=== PATIENT | female | born 1975 | race Caucasian/White ===

== ENCOUNTER → 2021-08-01 09:30 | Outpatient (BNVA) | payer OTHER, SELFPAY | PROVIDERS: Family Provider Family Medicine; PCP Family Medicine; Visit Provider Nurse Practitioner Family | DX: Z20.822 Contact with and (suspected) exposure to COVID-19 (principal) | CPT/HCPCS: 87635 ==

== ENCOUNTER → 2021-10-31 11:00 | Outpatient (BNVA) | payer OTHER, SELFPAY | PROVIDERS: Family Provider Family Medicine; PCP Family Medicine; Visit Provider Nurse Practitioner Family | DX: Z20.822 Contact with and (suspected) exposure to COVID-19 (principal); Z72.0 Tobacco use | CPT/HCPCS: 87635 ==

== ENCOUNTER 2023-10-07 17:23 | Emergency (ER) | payer OTHER, MEDICAID, SELFPAY ==
[2023-10-07 17:54] VITALS: BP 138/87; PULSE 98; RESP 12; TEMP 36.7; O2SAT 100; BMI 30.9
--- NOTE | 2023-10-07 19:53 | CTR_ITS ---
PROCEDURE INFORMATION: Exam: CT Abdomen And Pelvis With Contrast Exam date and time: 10/07/2023 8:32 PM Age: 48 years old Clinical indication: Abdominal pain; Localized; Right; Prior surgery; Surgery date: 6+ months; Surgery type: Gallbladder, csection, RT cyst removal on ovaryx2; Additional info: Rlq abd pain TECHNIQUE: Imaging protocol: Computed tomography of the abdomen and pelvis with contrast. Sagittal and coronal reformatted images were created and reviewed. Radiation optimization: All CT scans at this facility use at least one of these dose optimization techniques: automated exposure control; mA and/or kV adjustment per patient size (includes targeted exams where dose is matched to clinical indication); or iterative reconstruction. Contrast material: OMNI 350; Contrast volume: 100 ml; Contrast route: INTRAVENOUS (IV); COMPARISON: No relevant prior studies available. RADIATION DOSE METRICS: Total DLP (mGy-cm): 644.67 FINDINGS: Lungs: Visualized lungs are clear. Pleural spaces: No pleural effusion. Heart: Visualized portions of the heart are unremarkable. Liver: The liver is unremarkable. Gallbladder and bile ducts: Patient has had a previous cholecystectomy. Dilatation of the biliary ducts, not unexpected in a patient who has had a prior cholecystectomy. Pancreas: The pancreas is unremarkable. No pancreatic ductal dilatation. Spleen: The spleen is unremarkable. Adrenal glands: The right and left adrenal glands are unremarkable. Kidneys and ureters: The right and left kidneys are unremarkable. The right and left ureters are unremarkable. Stomach and bowel: No obstruction. No mucosal thickening. Appendix: The appendix is visualized and is unremarkable. No findings to suggest acute appendicitis. Intraperitoneal space: No free intraperitoneal air. No ascites. No loculated fluid collections to suggest an abscess. Vasculature: Mild atherosclerotic changes in the visualized arteries. No evidence for aortic aneurysm or aortic dissection. Hepatic veins, portal veins, splenic vein, and SMV are patent. Lymph nodes: No lymphadenopathy. Urinary bladder: The bladder is unremarkable for the degree of distension. Reproductive: Large nabothian cyst in the cervix. 4.4 x 4.2 cm leiomyoma in the anterior myometrium. The right ovary is unremarkable. The patient has had a previous bilateral tubal ligation. Dominant follicle in the left ovary measuring 2.1 x 1.6 cm (series 3, image 67). Bones/joints: Degenerative changes in the spine and hips. Soft tissues: No acute abnormality in the extra-abdominal soft tissues. CT/CT abdomen pelvis w con* [id number] IMPRESSION: 1. Dominant follicle in the left ovary measuring 2.1 x 1.6 cm. 2. Incidental/nonacute findings are listed in the report.
--- NOTE | 2023-10-07 19:54 | W.ED.ABDPA2 ---
HPI - Abdominal Pain General: Chief Complaint: Abdominal Pain Stated Complaint: right abd pain Time Seen by Provider: 10/07/23 19:40 History of Present Illness: 48-year-old female presents emergency department complaints of right lower quadrant abdominal pain that has been intermittent for the previous 5 days. She states over the last 4 to 5 hours it has become more prevalent and feels like it is more constant. She states that is a dull pulling type pain. She states she had a similar pain when she had inflammation of her gallbladder in the past. She denies known injury or trauma. She denies nausea vomiting fevers chills or night sweats. Review of Systems General: Reports: 10 or more systems reviewed and unremarkable except in HPI and below GI: Reports: abdominal pain PFSH ED PFSH: Social History Smoking and tobacco/nicotine status: current every day tobacco/nicotine user cigarettes Physical Exam Narrative: EXAM NARRATIVE: Constitutional: the patient appears well nourished and with normal development. Vital signs reviewed as documented. HENMT: Normocephalic, atraumatic. Extermal ears with normal appearance without drainage. Nose without drainage, normal appearance. Mucus membranes moist. Neck is supple, No jugular venous distension, trachea is midline, no appreciable carotid bruits. No lymphadenopathy. No meningeal signs. Flexion, extension and lateral rotation is without pain. Eyes: Pupils are equal, round, reactive to light and accommodation. No scleral icterus. Extra-ocular movement are intact. Thorax is symmetrical and with equal rise and fall with respirations. Resp: Lungs are clear to auscultation. No wheezes, rales, crackles or ronchi at present. Cardio: Regular rate and rhythm. Positive S1, S2. No appreciable murmurs, rubs or gallops. GI: Abdominal exam reveals normal bowel sounds to all quadrants. No organomegaly. No obvious palpable masses noted. No hepatomegally appreciated. Soft, slightly tender to palpation to the right lower quadrant and right upper quadrant. Into the suprapubic region. Extremity: Extremities are non-edematous and both femoral and pedal pulses are 2+ and equal bilaterally. Moves all extremities well, sensation in all extremities. Neuro: Alert and oriented x4, person, place, time and situation. Cranial nerves II through XII are grossly intact, there is no focal neurological deficits that I can appreciate at present. Motor strength in the upper and lower extremities are equal and bilateral 5/5. Psych: Cooperative, calm, normal thought process, appropriate judgment. Skin: No lesions, rashes. No gross abnormalities noted. Back: Symmetrical, no obvious deformity, No CVA tenderness Course Vital Signs: Vital signs: Vital Signs Temperature 98.1 F 10/07/23 17:54 Pulse Rate 84 10/07/23 22:15 Respiratory Rate 16 10/07/23 22:15 Blood Pressure 139/98 10/07/23 22:15 Pulse Oximetry 98 10/07/23 22:15 Oxygen Delivery Me thod Room Air 10/07/23 21:00 MDM - Abdominal Pain Medical Decision Making Physical exam completed and documented, I will obtain laboratory evaluation to include a CBC, CMP, lipase, urinalysis, and a CT scan of the patient's abdomen pelvis to evaluate for possible differential diagnosis of bowel obstruction, incarcerated hernia, abdominal wall strain, abdominal wall hematoma, constipation. I will provide the patient IV access and IV fluid as well as a CT scan abdomen pelvis with contrast for evaluation for possible colitis, acute appendicitis, diverticulitis, fibroma,. Medical Records I reviewed the patient's medical records. Lab Data I reviewed the patient's lab results. 10/07/23 20:05 10/07/23 20:05 Labs/Radiology: Radiology Impressions Abdomen/Pelvis CT 10/07/23 19:53 IMPRESSION: 1. Dominant follicle in the left ovary measuring 2.1 x 1.6 cm. 2. Incidental/nonacute findings are listed in the report. Laboratory Results WBC 10.43 10^3/uL (3.29-11.43) 10/07/23 20:05 RBC 4.77 10^6/uL (3.85-5.65) 10/07/23 20:05 Hgb 13.90 g/dL (11.27-16.99) 10/07/23 20:05 Hct 41.3 % (36-47) 10/07/23 20:05 MCV 86.6 fl (85-98) 10/07/23 20:05 MCH 29.1 pg (27-33) 10/07/23 20:05 MCHC 33.7 g/dL (30-55) 10/07/23 20:05 RDW 15.0 % (12.1-15.1) 10/07/23 20:05 Plt Count 438 10^3/cmm (157-399) H 10/07/23 20:05 MPV 9.5 fL (7.4-10.4) 10/07/23 20:05 Neut % (Auto) 59.8 % 10/07/23 20:05 Lymph % (Auto) 31.7 % 10/07/23 20:05 Edmonson % (Auto) 5.1 % 10/07/23 20:05 Eos % (Auto) 2.5 % 10/07/23 20:05 Baso % (Auto) 0.6 % 10/07/23 20:05 Neut # (Auto) 6.24 10^3/uL (1.8-7.7) 10/07/23 20:05 Lymph # (Auto) 3.3 10^3/uL (0.8-4.8) 10/07/23 20:05 Edmonson # (Auto) 0.5 10^3/uL (0.2-0.9) 10/07/23 20:05 Eos # (Auto) 0.3 10^3/uL (0.0-0.8) 10/07/23 20:05 Baso # (Auto) 0.1 10^3/uL (0.0-0.1) 10/07/23 20:05 Nucleated RBC % (auto) 0 % 10/07/23 20:05 Nucleated RBCs # 0.0 /100WBC 10/07/23 20:05 Sodium 141 mmol/L (136-145) 10/07/23 20:05 Potassium 4.1 mmol/L (3.5-5.1) 10/07/23 20:05 Chloride 104 mmol/L (98-107) 10/07/23 20:05 Carbon Dioxide 25 mmol/L (22-29) 10/07/23 20:05 Anion Gap 16.1 (5-19) 10/07/23 20:05 BUN 10 mg/dL (6-20) 10/07/23 20:05 Creatinine 0.7 mg/dL (0.5-0.9) 10/07/23 20:05 GFR Calculation 88.9 mL/min (90-130) L 10/07/23 20:05 Glucose 108 mg/dL (65-115) 10/07/23 20:05 Calculated Osmolality 292 mOsm/kg (285-295) 10/07/23 20:05 Calcium 9.5 mg/dL (8.5-10.5) 10/07/23 20:05 Total Bilirubin 0.2 mg/dL (0.15-1.2) 10/07/23 20:05 AST 15 U/L (0-32) 10/07/23 20:05 ALT 18 U/L (0-33) 10/07/23 20:05 Alkaline Phosphatase 91 U/L (35-105) 10/07/23 20:05 Total Protein 8.0 g/dL (6.6-8.7) 10/07/23 20:05 Albumin 4.3 g/dL (3.5-5.2) 10/07/23 20:05 Globulin 3.7 g/dL (1.3-4.6) 10/07/23 20:05 Lipase 40 U/L (13-60) 10/07/23 20:05 Urine Color Yellow (Yellow) 10/07/23 19:55 Urine Appearance Clear (CLEAR) 10/07/23 19:55 Urine pH 7 (5-7) 10/07/23 19:55 Ur Specific Nora 1.005 (1.005-1.030) 10/07/23 19:55 Urine Protein Neg (Negative) 10/07/23 19:55 Urine Glucose (UA) Norm (Normal) 10/07/23 19:55 Urine Ketones Negative (Negative) 10/07/23 19:55 Urine Blood Neg (Negative) 10/07/23 19:55 Urine Nitrate Negative (Negative) 10/07/23 19:55 Urine Bilirubin Neg (Negative) 10/07/23 19:55 Urine Urobilinogen Norm mg/dL (Negative) 10/07/23 19:55 Ur Leukocyte Esterase Negative (Negative) 10/07/23 19:55 All radiology interpretation(s) finalized by discharge Discharge Plan Discharge Patient Disposition: Home Clinical Impression: Nabothian cyst Abdominal pain Qualifiers: Abdominal location: lower abdomen, unspecified Qualified Code(s): R10.30 - Lower abdominal pain, unspecified Condition: Stable Prescriptions: No Action cholecalciferol (vitamin D3) 25 mcg (1,000 unit) capsule 25 mcg PO DAILY zinc 50 mg tablet 50 mg PO DAILY ascorbate calcium (vitamin C) 500 mg tablet 500 mg PO DAILY amoxicillin-pot clavulanate 875-125 mg tablet 1 tab PO BID 7 Days Qty: 14 0RF erythromycin 5 mg/gram (0.5 %) ointment 0.5 inch ophthalmic (eye) QID 7 Days Qty: 3.5 0RF Discharge Orders: Discharge ED (Routine); Ordered 10/07/23 Ordered By: Rob Goddard Referrals: Saturnino Russell MD [Physician] - Discharge Diet: Advance as tolerated Discharge Activity: Resume usual activity Patient Instructions: Abdominal Pain (ED), Opioid Safety, Pain Management Activity Restrictions/Additional Instructions: Activity Restrictions/Additional Instructions: Thank you for choosing [facility] for your healthcare needs today. Please realize that you were seen in the Emergency Department and that we are providing you with an emergency medical screening exam and this may not be a complete and all inclusive of all the testing and or medical work-up that you may need to determine your ailment or severity of your illness. It is very important that you follow-up as instructed with your Primary care provider or Specialist for additional evaluation and to discuss your medical treatment plan. You may return to the Emergency Department should you have concerns or if your condition changes or worsens in any way. Coding Level of Care Code ED Fire Control Technician G for Jaxon Fuchs
[2023-10-07 20:00] VITALS: BP 165/93; PULSE 90; RESP 16; O2SAT 98
[2023-10-07 20:15] LABS: Add Urine Microscopic? NO; Charge for UA Resulting for Rev
[2023-10-07 20:19] LABS: Bilirubin Urine Neg (Negative); Blood Urine Neg (Negative); Glucose Urine UA Norm (Normal); Ketones Urine Negative (Negative); Leukocyte Esterase Urine Negative (Negative); Nitrate Urine Negative (Negative); Protein Urine Neg (Negative); Specific Gravity, Urine 1.005 (1.005-1.030); Urine Appearance Clear (CLEAR); Urine Color Yellow (Yellow); Urobilinogen Urine Norm (Negative); pH Urine 7 (5-7)
[2023-10-07 20:27] LABS: Basophils # 0.1 10^3/uL (0.0-0.1); Basophils % 0.6 %; Eosinophils # 0.3 10^3/uL (0.0-0.8); Eosinophils % 2.5 %; Hematocrit 41.3 % (36-47); Lymphocytes # 3.3 10^3/uL (0.8-4.8); Lymphocytes % 31.7 %; Mean Corpuscular HGB Conc 33.7 g/dL (30-55); Mean Corpuscular Hemoglobin 29.1 pg (27-33); Mean Corpuscular Volume 86.6 fl (85-98); Mean Platelet Volume 9.5 fL (7.4-10.4); Monocytes # 0.5 10^3/uL (0.2-0.9); Monocytes % 5.1 %; Neutrophils # 6.24 10^3/uL (1.8-7.7); Neutrophils % 59.8 %; Nucleated Red Blood Cells % 0 %; Platelet Count 438 10^3/cmm (157-399); Red Blood Count 4.77 10^6/uL (3.85-5.65); White Blood Count 10.43 10^3/uL (3.29-11.43)
[2023-10-07 20:34] LABS: Alanine Aminotransferase 18 U/L (0-33); Albumin Level 4.3 g/dL (3.5-5.2); Alkaline Phosphatase 91 U/L (35-105); Anion Gap 16.1 (5-19); Aspartate Amino Transferase 15 U/L (0-32); Blood Urea Nitrogen 10 mg/dL (6-20); Calcium 9.5 mg/dL (8.5-10.5); Carbon Dioxide 25 mmol/L (22-29); Chloride 104 mmol/L (98-107); Globulin 3.7 g/dL (1.3-4.6); Glomerular Filtration Rate 88.9 mL/min (90-130); Glucose 108 mg/dL (65-115); Lipase 40 U/L (13-60); Osmolality Calculated 292 mOsm/kg (285-295); Potassium 4.1 mmol/L (3.5-5.1); Sodium 141 mmol/L (136-145); Total Bilirubin 0.2 mg/dL (0.15-1.2)
[2023-10-07] MEDS: iohexol 350 mg/mL 500 mL Btl (per mL) IV (20:36)
[2023-10-07 21:00] VITALS: BP 132/84; PULSE 88; RESP 16; O2SAT 99
[2023-10-07] MEDS: ketorolac 30 mg/mL INJ IVP (21:57)
[2023-10-07 22:15] VITALS: BP 139/98; PULSE 84; RESP 16; O2SAT 98
== END 2023-10-07 22:16 | disposition home or self-care (01) ==
PROVIDERS: Emergency Provider Internal Medicine
DX: R10.31 Right lower quadrant pain (principal); N88.8 Other specified noninflammatory disorders of cervix uteri; Z72.0 Tobacco use
CPT/HCPCS: 74177; 80053; 81003; 83690; 85025; 96374; 99285; J1885; Q9967

== ENCOUNTER → 2023-10-21 09:25 | Outpatient (BNVA) | payer OTHER, MEDICAID, SELFPAY | PROVIDERS: Visit Provider Obstetrics & Gynecology | DX: Z01.419 Encounter for gynecological examination (general) (routine) without abnormal findings (principal) | CPT/HCPCS: 87624 ==

== ENCOUNTER → 2023-10-30 10:48 | Outpatient (BNVA) | payer OTHER, MEDICAID, SELFPAY | PROVIDERS: Visit Provider Obstetrics & Gynecology | DX: N92.6 Irregular menstruation, unspecified (principal); D25.9 Leiomyoma of uterus, unspecified; N83.202 Unspecified ovarian cyst, left side | CPT/HCPCS: 76830 ==

== ENCOUNTER 2023-12-04 07:17 | Day surgery (SDC) | payer OTHER, MEDICAID, SELFPAY ==
[2023-12-04] VITALS (10 sets, daily range): BP systolic 121–140; BP diastolic 71–91; PULSE 71–84; RESP 12–20; TEMP 36.1; O2SAT 96–100; BMI 31.4
--- NOTE | 2023-12-04 01:35 | P.HP_ITS ---
Same Day Surgery H&P Indication for Procedure/HPI DATE OF PROCEDURE: December 04, 2023 CHIEF COMPLAINT/INDICATIONFOR SURGICAL PROCEDURE: abnormal uterine bleeding PREOP DIAGNOSIS: abnormal uterine bleeding PLANNED PROCEDURE: Operation Date: 12/04/23 08:50 Proposed Procedures p Hysteroscopy, endometrial sampling, possible endometrial polypectomy 64973 r1 0.2(Not Applicable) - Saturnino Russell MD s possible endometrial polypectomy 48629(Not Applicable) - Saturnino Russell MD 48 y.o. L2 h/o BTL h/o irregular bleeding now scheduled for hysteroscopy, endometrial sampling, possible endometrial polypectomy Medications/Allergies* Home Medications Medication Instructions Recorded Confirmed Type No Known Home Medications 10/21/23 11/03/23 History Allergies/Adverse Reactions Allergy/AdvReac Type Severity Reaction Status Date / Time acetaminophen [From Vicodin] Allergy Severe itching, Verified 12/03/23 08:29 hallucinations hydrocodone [From Vicodin] Allergy Severe itching, Verified 12/03/23 08:29 hallucinations Pertinent History/Comorbid Conditions* Family History (Updated 10/21/23 @ 08:17 by Isa Marie LPN) Ovarian cancer Grandmother Sister Diabetes Grandfather Heart disease Grandfather Breast cancer Grandmother Uterine cancer Grandmother Thyroid disease Grandmother Denies family history of Colon cancer Prostate cancer Hypercholesteremia Hypertension Stroke Social History Smoking and tobacco/nicotine status: current every day tobacco/nicotine user cigarettes Pertinent Exam Findings alert, oriented x 3, clear to auscultation bilaterally and regular rate & rhythm Recommendations Surgery/Procedure today Coding Level of Care Code Acute Code for Chg Fwd Time Spent (min) 15
--- NOTE | 2023-12-04 07:46 | W.PM.OPSUD ---
Surgery/Procedure H&P Update DATE OF PROCEDURE: December 04, 2023 DATE H&P PERFORMED: 12/04/23 H&P UPDATE INFORMATION: I have reviewed H&P completed within last 30 days, I have examined patient prior to procedure and No changes to prior documentation PREOP DIAGNOSIS: abnormal uterine bleeding PLANNED PROCEDURE: Operation Date: 12/04/23 08:50 Proposed Procedures p Hysteroscopy, endometrial sampling, possible endometrial polypectomy 82609 r10.2(Not Applicable) - Saturnino Russell MD s possible endometrial polypectomy 13798(Not Applicable) - Saturnino Russell MD
[2023-12-04] MEDS: scopolamine 1.5 Patch 1 PATCH TRANSDERMA (07:50)
[2023-12-04] MEDS: sodium chloride 0.9% 1,000 ML 30 ML IV (08:02)
--- NOTE | 2023-12-04 08:05 | ANES.PREANE2 ---
Pre-Anesthetic Assessment Height/Weight: Height 1.61 m Weight 81.647 kg Temp Pulse Resp BP Pulse Ox O2 Del Method 97.0 F L 84 18 130/86 98 Room Air 12/04/23 07:31 12/04/23 07:31 12/04/23 07:31 12/04/23 07:31 12/04/23 07:31 12/04/23 07:33 Preop Diagnosis: abnormal uterine bleeding Operation Date: 12/04/23 08:50 Proposed Procedures p Hysteroscopy, endometrial sampling, possible endometrial polypectomy 19213 r10.2(Not Applicable) - Saturnino Russell MD s possible endometrial polypectomy 60603(Not Applicable) - Saturnino Russell MD Was Beta Maru taken within 24 hours: N/A Was Clonidine taken within 24 hours: N/A Last intake: Intake Last Liquid Date 12/03/23 Last Liquid Time 23:30 Last Solid Date 12/03/23 Last Solid Time 19:00 Social Tobacco 1/3 pack(s) per day Exam alert and oriented x 3 Airway Submandibular: within normal limits Cervical ROM: within normal limits Mallampati: Class II Comments: Comments: Bad tooth @ Upper right molar History/ROS No significant history except as noted and No significant complaints Anesthetic Plan ASA status: 2 Anesthesia: General Risk of > 500 ml blood loss (7ml/kg in children): No Medications/Allergies Home Medications Medication Instructions Recorded Confirmed Last Taken Type No Known Home Medications 10/21/23 11/03/23 Unknown History Allergies Allergy/AdvReac Type Severity Reaction Status Date / Time acetaminophen [From Vicodin] Allergy Severe itching, Verified 12/03/23 08:29 hallucinations hydrocodone [From Vicodin] Allergy Severe itching, Verified 12/03/23 08:29 hallucinations Current Medications Generic Name Dose Route Start Last Admin Trade Name Freq PRN Reason Stop Dose Admin Sodium Chloride 1,000 mls @ 30 mls/hr 12/04/23 07:30 12/04/23 08:02 Sodium Chloride 0.9% IV 12/05/23 07:29 30 mls/hr .Q24H CARSON Administration PFSH Anesthesia Family History Grandmother Breast cancer Uterine cancer Ovarian cancer Thyroid disease Sister Ovarian cancer Grandfather Heart disease Diabetes Denies family history of Colon cancer Prostate cancer Hypercholesteremia Hypertension Stroke Social History Smoking and tobacco/nicotine status: current every day tobacco/nicotine user cigarettes Female Reproductive History Date of last menstrual period: 12/03/23 Data Anesthesia Cardiac Studies: No Data to Display
[2023-12-04 08:16] LABS: OR HCG Qualitative Urine Negative (Negative)
--- NOTE | 2023-12-04 09:35 | P.OP_ITS ---
Operative Report Date of procedure: December 04, 2023 Pre-op diagnosis: abnormal uterine bleeding Post-op diagnosis: same Post-op findings: Large 5 cm endocervical polyp outside of cervical os, connected via a stalk Normal endometrial cavity No endometrial polyps or fibroids Procedure done: Removal of large endocervical polyp Hysteroscopy Curettage of uterus Implants: none Specimens removed/disposition: endocervical polyp endometrial tissue Surgeon: Saturnino Russell MD Anesthesia: MAC Estimated blood loss (mL): 0 Complications: none Condition: stable Disposition: PACU Brief History: 48 y.o. with abnormal uterine bleeding Procedure: Informed consent signed. Patient was taken to the operating room. Anesthesia was induced. Patient was placed in dorsolithotomy position, prepped and draped for hysteroscopy. A bivalve speculum was placed in the vagina. A 5 cm polyp can be seen outside the cervical os connected via a thin stalk. The polyp was removed and sent to [facility]. The anterior lip of the cervix was grasped with a sharp-toothed tenaculum. The cervix was widely dilated. . A hysteroscope was placed into the endometrial cavity. The endometrial cavity was seen to be normal. There were no polyps or fibroids. There was a minimal amount of endometrial tissue. The hysteroscope was then removed. Endometrial curettage was done with a sharp curette. Endometrial tissue was sent to pathology. The sharp-toothed tenaculum was removed. There was no bleeding from the endometrial cavity or cervix. The patient was then placed supine and awakened and taken to the PACU. Postop condition: stable EBL: none Sponge and instruments counts were normal x 2 Complications: none
--- NOTE | 2023-12-04 20:22 | ANE.PACU2 ---
Inpatient post-anesthesia follow up: Airway intact: Yes Vital signs: Temperature 97.0 F Pulse Rate 72 Respiratory Rate 18 Blood Pressure 134/72 Pulse Oximetry 100 Oxygen Delivery Me thod Room Air Oxygen Flow Rate 6 Fraction of Inspir ed Oxygen Hydration adequate: Yes Nausea and vomiting: No Pain level: 2 Mental status: Baseline
== END 2023-12-04 10:00 | disposition home or self-care (01) ==
PROVIDERS: Anesthesiology; Visit Provider Obstetrics & Gynecology
PROC: 0UJD8ZZ Inspection of Uterus and Cervix, Via Natural or Artificial Opening Endoscopic (ICD-10-PCS; CPT 58555; principal; 2023-12-04 08:40)
PROC: (CPT 58558; 2023-12-04 08:40)
DX: N93.9 Abnormal uterine and vaginal bleeding, unspecified (principal); N84.1 Polyp of cervix uteri; F17.210 Nicotine dependence, cigarettes, uncomplicated
CPT/HCPCS: 58558; 84703; 88305; J1100; J2250; J2405; J2704; J3010; J7030

== ENCOUNTER 2024-01-08 21:05 | Emergency (ER) | payer OTHER, MEDICAID, SELFPAY ==
[2024-01-08 21:12] VITALS: BP 146/94; PULSE 117; RESP 20; TEMP 36.6; O2SAT 99; BMI 31.8
--- NOTE | 2024-01-08 21:30 | W.ED.FEMALGU ---
HPI - Female Genitourinary General: Chief complaint: Urogenital-Female Stated complaint: Possible Kidney Stones Time Seen by Provider: 01/08/24 21:21 History of Present Illness: Patient presents with history of left-sided flank pain that radiates down to her groin. Patient's says she passed approximately 3 stones on Friday. Patient does have a history of kidney stones. Patient says she is gone try to ride and pass this when out but then she started having extreme nausea and vomiting and thought she better come to the ER. Review of Systems General: Reports: 10 or more systems reviewed and unremarkable except in HPI and below PFSH ED PFSH: Family History Grandmother Breast cancer Uterine cancer Ovarian cancer Thyroid disease Sister Ovarian cancer Grandfather Heart disease Diabetes Denies family history of Colon cancer Prostate cancer Hypercholesteremia Hypertension Stroke Social History Smoking and tobacco/nicotine status: current every day tobacco/nicotine user cigarettes Physical Exam Const: COMMON NORMALS: no acute distress, average body habitus, patient oriented x3, no limitations, healthy appearing, alert and well nourished HENMT: COMMON NORMALS: normocephalic, atraumatic, hearing grossly normal bilaterally, external ears normal, Normal external nose present, moist oral mucous membranes and oropharynx normal HEAD & SCALP: normocephalic and atraumatic NOSE: Normal external nose present EXTERNAL EAR: Yes external ears normal Neck/C-Spine: COMMON NORMALS: no JVD Chest: COMMONS NORMALS: normal inspection of the chest and normal palpation of entire chest wall Resp: COMMON NORMALS: normal respiratory effort, No retractions, No use of accessory muscles and clear to auscultation bilaterally AUSCULTATION: clear to auscultation bilaterally Cardio: COMMON NORMALS: no JVD, regular rate, regular rhythm, S1 normal heart sound present, S2 normal heart sound present, No gallops present (Cardio), No clicks present (Cardio), No murmurs present (Cardio) and No rub (Cardio) RATE: regular rate RHYTHM: regular rhythm HEART SOUNDS: S1 normal heart sound present and S2 normal heart sound present GI: COMMON NORMALS: Normal to inspection, nondistended, normoactive bowel sounds present, Soft to palpation, non-tender, No hepatosplenomegaly present and no masses PALPATION: Yes Soft to palpation and Yes No hepatosplenomegaly present Neuro: COMMON NORMALS: patient oriented x3 SENSORIUM/ORIENTATION: Yes alert Course Vital Signs: Vital signs: Vital Signs Temperature 97.9 F 01/08/24 21:12 Pulse Rate 74 01/08/24 23:43 Respiratory Rate 16 01/08/24 23:43 Blood Pressure 119/73 01/08/24 23:43 Pulse Oximetry 97 01/08/24 23:43 Oxygen Delivery Me thod Room Air 01/08/24 22:11 MDM - Female Medical Decision Making Patient had workup to include lab work that showed patient has white count of 17,000, CT scan of the abdomen pelvis which showed stranding of the left perinephric fascia could be related to inflammatory changes or infection. Patient was given 1 g Rocephin here in the ER IV and will be discharged on ciprofloxacin. Patient to follow-up with her PCP with approximately 7 to 10 days. Differential Diagnosis Likely calculus of kidney; Unlikely abdominal pain, acute appendicitis, constipation, diverticulitis, endometriosis, gastroenteritis, pancreatitis or small bowel obstruction Medical Records I reviewed the patient's medical records. Lab Data I reviewed the patient's lab results. 01/08/24 21:47 01/08/24 21:47 Radiology Impressions Abdomen/Pelvis CT 01/08/24 22:20 IMPRESSION: 1. Subtle stranding seen in the left perinephric fascia and haziness seen adjacent to the serosal margin of the left ureter, findings that could represent mild inflammatory changes. Pyelonephritis and ureteritis can not be excluded. The recent passage of a left ureteral calculus can not excluded as well. 2. Small benign functional left ovarian cyst measuring 1.8 cm. No further workup needed. 3. The ovoid cystic mass within the uterine cervix has resolved compared with 10/07/2023. 4. Probable benign uterine leiomyoma appearing stable compared with 10/07/2023. Laboratory Results WBC 17.62 10^3/uL (3.29-11.43) H 01/08/24 21:47 RBC 4.66 10^6/uL (3.85-5.65) 01/08/24 21:47 Hgb 13.70 g/dL (11.27-16.99) 01/08/24 21:47 Hct 40.1 % (36-47) 01/08/24 21:47 MCV 86.1 fl (85-98) 01/08/24 21:47 MCH 29.4 pg (27-33) 01/08/24 21:47 MCHC 34.2 g/dL (30-55) 01/08/24 21:47 RDW 13.9 % (12.1-15.1) 01/08/24 21:47 Plt Count 354 10^3/cmm (157-399) 01/08/24 21:47 MPV 9.2 fL (7.4-10.4) 01/08/24 21:47 Neut % (Auto) 78.5 % 01/08/24 21:47 Lymph % (Auto) 15.2 % 01/08/24 21:47 [place] % (Auto) 4.1 % 01/08/24 21:47 Eos % (Auto) 1.6 % 01/08/24 21:47 Baso % (Auto) 0.3 % 01/08/24 21:47 Neut # (Auto) 13.82 10^3/uL (1.8-7.7) H 01/08/24 21:47 Lymph # (Auto) 2.7 10^3/uL (0.8-4.8) 01/08/24 21:47 [place] # (Auto) 0.7 10^3/uL (0.2-0.9) 01/08/24 21:47 Eos # (Auto) 0.3 10^3/uL (0.0-0.8) 01/08/24 21:47 Baso # (Auto) 0.1 10^3/uL (0.0-0.1) 01/08/24 21:47 Nucleated RBC % (auto) 0 % 01/08/24 21:47 Nucleated RBCs # 0.0 /100WBC 01/08/24 21:47 Sodium 132 mmol/L (136-145) L 01/08/24 21:47 Potassium 4.0 mmol/L (3.5-5.1) 01/08/24 21:47 Chloride 99 mmol/L (98-107) 01/08/24 21:47 Carbon Dioxide 22 mmol/L (22-29) 01/08/24 21:47 Anion Gap 15.0 (5-19) 01/08/24 21:47 BUN 11 mg/dL (6-20) 01/08/24 21:47 Creatinine 0.6 mg/dL (0.5-0.9) 01/08/24 21:47 GFR Calculation 106.3 mL/min (90-130) 01/08/24 21:47 Glucose 114 mg/dL (65-115) 01/08/24 21:47 Calculated Osmolality 274 mOsm/kg (285-295) L 01/08/24 21:47 Calcium 9.3 mg/dL (8.5-10.5) 01/08/24 21:47 Total Bilirubin 0.2 mg/dL (0.15-1.2) 01/08/24 21:47 AST 13 U/L (0-32) 01/08/24 21:47 ALT 15 U/L (0-33) 01/08/24 21:47 Alkaline Phosphatase 107 U/L (35-105) H 01/08/24 21:47 Total Protein 7.4 g/dL (6.6-8.7) 01/08/24 21:47 Albumin 4.1 g/dL (3.5-5.2) 01/08/24 21:47 Globulin 3.3 g/dL (1.3-4.6) 01/08/24 21:47 Lipase 32 U/L (13-60) 01/08/24 21:47 Urine Color Dark yellow (Yellow) 01/08/24 21:47 Urine Appearance Cloudy (CLEAR) A 01/08/24 21:47 Urine pH 5 (5-7) 01/08/24 21:47 Ur Specific [place] 1.020 (1.005-1.030) 01/08/24 21:47 Urine Protein 3+ (Negative) H 01/08/24 21:47 Urine Glucose (UA) Norm (Normal) 01/08/24 21:47 Urine Ketones Negative (Negative) 01/08/24 21:47 Urine Blood 3+ (Negative) H 01/08/24 21:47 Urine Nitrate Positive (Negative) H 01/08/24 21:47 Urine Bilirubin 1+ (Negative) H 01/08/24 21:47 Urine Urobilinogen Neg mg/dL (Negative) 04/11/24 21:47 Ur Leukocyte Esterase 2+ (Negative) H 01/08/24 21:47 Urine RBC 25-40 /hpf (0-2) H 01/08/24 21:47 Urine WBC 25-40 /hpf (0-5) H 01/08/24 21:47 Ur Squamous Epith Cells 0-4 /hpf (0-5) H 01/08/24 21:47 Amorphous Sediment Not Reportable 01/08/24 21:47 Urine Bacteria 1+ /hpf (NONE) H 01/08/24 21:47 All radiology interpretation(s) finalized by discharge Discharge Plan Discharge Patient Disposition: Home Clinical Impression: Pyelonephritis Condition: Stable Prescriptions: New ciprofloxacin HCl 500 mg tablet 500 mg PO Q12H Qty: 20 0RF Discharge Orders: Discharge ED (Routine); Ordered 01/08/24 Ordered By: Diego Nick Patient Instructions: Flank Pain (ED), Pyelonephritis Activity Restrictions/Additional Instructions: Please push plenty of fluids and take all medicine as directed. Please follow-up with your PCP within approximately 7 to 10 days as needed. Coding Level of Care Code ED Metaphysician for Jaxon Fuchs
[2024-01-08 21:52] LABS: Basophils # 0.1 10^3/uL (0.0-0.1); Basophils % 0.3 %; Eosinophils # 0.3 10^3/uL (0.0-0.8); Eosinophils % 1.6 %; Hematocrit 40.1 % (36-47); Lymphocytes # 2.7 10^3/uL (0.8-4.8); Lymphocytes % 15.2 %; Mean Corpuscular HGB Conc 34.2 g/dL (30-55); Mean Corpuscular Hemoglobin 29.4 pg (27-33); Mean Corpuscular Volume 86.1 fl (85-98); Mean Platelet Volume 9.2 fL (7.4-10.4); Monocytes # 0.7 10^3/uL (0.2-0.9); Monocytes % 4.1 %; Neutrophils # 13.82 10^3/uL (1.8-7.7); Neutrophils % 78.5 %; Nucleated Red Blood Cells % 0 %; Platelet Count 354 10^3/cmm (157-399); Red Blood Count 4.66 10^6/uL (3.85-5.65); Red Cell Distribution Width 13.9 % (12.1-15.1); White Blood Count 17.62 10^3/uL (3.29-11.43)
[2024-01-08] MEDS: ketorolac 30 mg/mL INJ IVP (21:53)
[2024-01-08] MEDS: ondansetron 2 mg/ML SDV 2 mL 4 MG IVP (21:54)
[2024-01-08] MEDS: sodium chloride 0.9% 1,000 ML 999 ML IV (21:54)
[2024-01-08 22:09] LABS: Alanine Aminotransferase 15 U/L (0-33); Albumin Level 4.1 g/dL (3.5-5.2); Alkaline Phosphatase 107 U/L (35-105); Aspartate Amino Transferase 13 U/L (0-32); Blood Urea Nitrogen 11 mg/dL (6-20); Calcium 9.3 mg/dL (8.5-10.5); Carbon Dioxide 22 mmol/L (22-29); Chloride 99 mmol/L (98-107); Creatinine Clr Calc Pharmacy 114.7695; Globulin 3.3 g/dL (1.3-4.6); Glomerular Filtration Rate 106.3 mL/min (90-130); Glucose 114 mg/dL (65-115); Lipase 32 U/L (13-60); Osmolality Calculated 274 mOsm/kg (285-295); Sodium 132 mmol/L (136-145); Total Bilirubin 0.2 mg/dL (0.15-1.2); Total Protein 7.4 g/dL (6.6-8.7)
[2024-01-08 22:11] VITALS: BP 122/76; PULSE 91; RESP 20; O2SAT 94
--- NOTE | 2024-01-08 22:20 | CTR_ITS ---
PROCEDURE INFORMATION: Exam: CT Abdomen And Pelvis Without Contrast Exam date and time: 01/08/2024 10:27 PM Age: 48 years old Clinical indication: Pain and abnormal findings; Abnormal lab test; Elevated liver enzymes; Abdominal pain; Prior surgery; Surgery date: 6+ months; Surgery type: Gb. Csection; Patient HX: Left flank pain with wbc of 17k. History of renal stones. ; Additional info: Left flank pain leukocytosis TECHNIQUE: Imaging protocol: Computed tomography of the abdomen and pelvis without contrast. Radiation optimization: All CT scans at this facility use at least one of these dose optimization techniques: automated exposure control; mA and/or kV adjustment per patient size (includes targeted exams where dose is matched to clinical indication); or iterative reconstruction. COMPARISON: CT abdomen pelvis w con* [id number] 10/07/2023 8:32 PM RADIATION DOSE METRICS: Total DLP (mGy-cm): 653.8 FINDINGS: Liver: Normal. No mass. Gallbladder and bile ducts: Status post cholecystectomy. Pancreas: Normal. No ductal dilation. Spleen: Normal. No splenomegaly. Adrenal glands: Normal. No mass. Kidneys and ureters: Normal. No hydronephrosis. Stomach and bowel: Unremarkable. No obstruction. No mucosal thickening. Appendix: No evidence of appendicitis. Intraperitoneal space: Unremarkable. No free air. No significant fluid collection. Vasculature: Unremarkable. No abdominal aortic aneurysm. Lymph nodes: Unremarkable. No enlarged lymph nodes. Urinary bladder: Unremarkable as visualized. Reproductive: A hypoattenuation cystic lesions again seen within the left ovary, today measuring 1.8 cm in diameter. The large ovoid cystic mass seen within the uterine cervix on 10/07/2023 is not seen in today's examination. A heterogeneous mildly hypodense mass is seen in the uterine fundus that corresponds to the mass seen on 10/07/2023 compatible with a leiomyoma. Bones/joints: Unremarkable. No acute fracture. Soft tissues: There is some subtle stranding seen in the perinephric fascia on the left and some subtle haziness seen adjacent to the left ureter, findings could represent mild inflammatory changes and pyelonephritis/ureteritis. CT/CT kidney stone [id number] IMPRESSION: 1. Subtle stranding seen in the left perinephric fascia and haziness seen adjacent to the serosal margin of the left ureter, findings that could represent mild inflammatory changes. Pyelonephritis and ureteritis can not be excluded. The recent passage of a left ureteral calculus can not excluded as well. 2. Small benign functional left ovarian cyst measuring 1.8 cm. No further workup needed. 3. The ovoid cystic mass within the uterine cervix has resolved compared with 10/07/2023. 4. Probable benign uterine leiomyoma appearing stable compared with 10/07/2023.
[2024-01-08 22:30] LABS: Add Urine Microscopic? YES; Bilirubin Urine 1+ (Negative); Blood Urine 3+ (Negative); Glucose Urine UA Norm (Normal); Ketones Urine Negative (Negative); Leukocyte Esterase Urine 2+ (Negative); Nitrate Urine Positive (Negative); Protein Urine 3+ (Negative); RBC Urine 25-40 /hpf (0-2); Urine Appearance Cloudy (CLEAR); Urine Color Dark Yellow (Yellow); Urobilinogen Urine Neg (Negative); WBC Urine 25-40 /hpf (0-5); pH Urine 5 (5-7)
[2024-01-08 22:31] LABS: Add Urine Culture? Yes; Bacteria Urine 1+ /hpf; Squamous Epithelial Cell Urine 0-4 /hpf (0-5)
[2024-01-08 22:55] VITALS: BP 114/82; PULSE 91; RESP 18; O2SAT 98
[2024-01-08 23:17] VITALS: BP 129/93; PULSE 87; RESP 16; O2SAT 94
[2024-01-08] MEDS: cefTRIAXone 1,000 MG in sodium chloride 0.9% (plus) 50 ML 100 MG IV (23:28)
[2024-01-08 23:31] VITALS: BP 116/86; PULSE 90; RESP 16; O2SAT 93
[2024-01-08 23:43] VITALS: BP 119/73; PULSE 74; RESP 16; O2SAT 97
== END 2024-01-08 23:45 | disposition home or self-care (01) ==
PROVIDERS: Emergency Medicine; Emergency Provider Emergency Medicine
DX: N12 Tubulo-interstitial nephritis, not specified as acute or chronic (principal); F17.210 Nicotine dependence, cigarettes, uncomplicated
CPT/HCPCS: 74176; 80053; 81001; 83690; 85025; 87077; 87086; 87186; 96361; 96374; 96375; 99285; J0696; J1885; J2405; J7030

== ENCOUNTER 2024-10-01 13:44 | Outpatient (CLI) | payer OTHER, MEDICAID, SELFPAY ==
--- NOTE | 2024-10-01 13:53 | MM_ITS ---
WS: [id number] BILATERAL 3D TOMOSYNTHESIS DIGITAL SCREENING MAMMOGRAPHY WITH CAD CLINICAL INFORMATION: SCREENING HISTORY: Screening mammogram. No current complaints. COMPARISON: 2016 TECHNIQUE: Bilateral CC and MLO views. FINDINGS: The breasts are composed of heterogeneous fibroglandular density tissue, which can limit the detectio n of small underlying mass lesions. No suspicious mass, asymmetry, calcifications, or architectural d istortion. No evidence of malignancy. MM/MM [facility] tomosynthesis [id number] IMPRESSION: DENSITY: The breasts are heterogeneously dense, which may obscure small masses. BI-RADS: 1 - Negative FOLLOW UP: 1 Year Follow-up Recommend return to annual screening mammography.
== END 2024-10-01 13:45 | disposition home or self-care (01) ==
LOC: RAD 13:44
PROVIDERS: Visit Provider Family Medicine
DX: Z12.31 Encounter for screening mammogram for malignant neoplasm of breast (principal); R92.333 Mammographic heterogeneous density, bilateral breasts
CPT/HCPCS: 77063; 77067